=== PATIENT | female | born 1995 | race Caucasian/White ===

== ENCOUNTER 2016-11-10 13:03 | Emergency (ER) | payer BC ==
[2016-11-10 13:14] VITALS: BP 115/69
--- NOTE | 2016-11-10 14:39 | ER Document Report ---
HPI - HPI Patient complains to provider of: neck pain Pain Level: 4 Context: 21 yo female c/o neck pain x 2 days. acute sharp pain after bending over to shrimp picker weight at the gym. no headache, no paresthesias, no fever Associated Symptoms: None Exacerbated by: Movement - lateral rotation Relieved by: Denies - ROS Systems Reviewed and Negative: Yes All other systems reviewed and negative - DERM Skin Color: Normal Past Medical History - General Information source: Patient - Social History Smoking Status: Never Smoker Frequency of alcohol use: None Drug Abuse: None Lives with: Family Family History: Reviewed & Not Pertinent Patient has suicidal ideation: No Patient has homicidal ideation: No - Medical History Medical History: Negative Renal/ Medical History: Denies: Hx Peritoneal Dialysis Vertical Provider Document - CONSTITUTIONAL Agree With Documented VS: Yes Exam Limitations: No Limitations - INFECTION CONTROL TRAVEL OUTSIDE OF THE [place] IN LAST 30 DAYS: No - HEENT HEENT: Atraumatic, Normal ENT Exam, PERRLA - NECK Neck: Other Notes: no cervical tenderness, mild trapezius tenderness - RESPIRATORY Respiratory: Breath Sounds Normal, No Respiratory Distress O2 Sat by Pulse Oximetry: 98 - CARDIOVASCULAR Cardiovascular: Regular Rate, Regular Rhythm - BACK Back: Normal Inspection - MUSCULOSKELETAL/EXTREMETIES Musculoskeletal/Extremeties: MAEW, FROM, Non-Tender - NEURO Level of Consciousness: Awake, Alert, Appropriate - DERM Integumentary: Warm, Dry Course - Re-evaluation Re-evalutation: 11/10/16 14:38 no bony tenderness, no trauma, no imaging indicated - Vital Signs Vital signs: Temp Pulse Resp BP Pulse Ox 98 F 81 22 H 115/69 98 11/10/16 13:12 11/10/16 13:12 11/10/16 13:12 11/10/16 13:12 11/10/16 13:12 Discharge - Discharge Clinical Impression: Neck pain Condition: Stable Instructions: Neck Injury (Cervical Strain) ([facility]), Ibuprofen (General) ([facility]), Oral Narcotic Medication ([facility]) Additional Instructions: pain medications as prescribed ice to painful area follow up with primary care if pain persists more than 10 days Prescriptions: Ibuprofen [Motrin 800 Mg Tablet] 800 mg PO Q6H #20 tablet Oxycodone HCl/Acetaminophen [Percocet 5-325 mg Tablet] 1 - 2 tab PO ASDIR PRN # 15 tablet PRN Reason:
== END 2016-11-10 15:01 | disposition home or self-care (01) ==
LOC: ER 13:03
DX: M54.2 Cervicalgia (principal)
CPT/HCPCS: 99283